=== PATIENT | female | born 1945 | race Caucasian/White ===

== ENCOUNTER 2016-05-29 09:11 | Observation (INO) | payer OTHER, MEDICAID ==
[2016-05-29] MEDS ORDERED: NS 1,000 ML IV ONE (09:17)
--- NOTE | 2016-05-29 09:22 | EDPHY ---
H & P Time Seen by Provider: 05/29/16 09:17 HPI/ROS: CHIEF COMPLAINT: Syncope HISTORY OF PRESENT ILLNESS: 70-year-old female with a history of severe depression presents for recurrent syncopal episodes. Today she was at ECT, about to receive her ECT treatment, when she had a witnessed syncopal episode while she was sitting. Associated with brief generalized seizure activity after the episode. She quickly returned to her baseline mental status. However , when she was talking to Dr. Morales, she slumped forward and had a recurrent episode of unresponsiveness, associated with generalized seizure activity. She quickly returned to her normal mental status and was not postictal after the episode. She states that these episodes frequently occur for her. She was evaluated in January 2015 for recurrent near syncopal episodes and diagnosed with multiple pulmonary embolisms. The patient is anticoagulated on Xarelto. Over the past week, she's noticed intermittent episodes of chest pain. Her pain is localized substernally. It is moderate in nature. Her pain is unassociated with exertion. REVIEW OF SYSTEMS: Constitutional: No fever, no chills Eyes: No visual changes ENT: No sore throat Respiratory: No cough, no shortness of breath Cardiac: Chest pain Gastrointestinal: No nausea, no vomiting, no abdominal pain Genitourinary: No hematuria, no dysuria Musculoskeletal: No leg pain or swelling Skin: No rash Neurological: No headache, no numbness, no weakness Psychiatric: Depression Past Medical/Surgical History: Depression, PE Social History: No recent alcohol. Smoking Status: Former smoker Physical Exam: General Appearance: Alert, no distress Eyes: Pupils equal and round, no conjunctival pallor or injection ENT, Mouth: Mucous membranes moist Neck: Normal inspection Respiratory: Lungs are clear to auscultation Cardiovascular: Regular rate and rhythm Gastrointestinal: Abdomen is soft and non-tender Neurological: A&O, nonfocal, normal gait Skin: Warm and dry, no rash Extremities: Nontender, no pedal edema Psychiatric: Mood and affect normal Constitutional: Initial Vital Signs Temperature (C) 36.3 C 05/29/16 09:15 Heart Rate 103 H 05/29/16 09:15 Respiratory Rate 16 05/29/16 09:15 Blood Pressure 163/85 H 05/29/16 09:15 O2 Sat (%) 93 05/29/16 09:15 O2 Delivery Mode Room Air Allergies/Adverse Reactions: Penicillins Allergy (Intermediate, Verified 11/08/14 01:53) Tetracyclines Allergy (Intermediate, Verified 11/08/14 01:53) latex Allergy (Verified 01/25/15 09:43) Home Medications: Medication Instructions Recorded Vitamin B Complex [B Complex] 1 each PO DAILY 07/30/14 Pravastatin Sodium [Pravachol] 20 mg PO HS #30 tab 08/29/14 Venlafaxine Xr [Effexor Xr] 150 mg PO DAILY #30 cap 08/29/14 Enalapril Maleate [Vasotec 5 MG 2.5 mg PO DAILY 11/02/14 (*)] Sennosides/Docusate Sodium 2 each PO BID 11/02/14 [Senokot-S] Acetaminophen [Tylenol Tablet] 650 mg PO Q6 PRN 11/08/14 Pantoprazole Sodium [Protonix 40mg 40 mg PO DAILY #60 tab 11/08/14 (*)] ARIPiprazole [Abilify 2 mg (*)] 2 mg PO DAILY 01/25/15 Calcium Carbonate [Tums 500MG (*)] 1,000 mg PO PRN PRN 01/25/15 Cholecalciferol (Vitamin D3) 50,000 unit PO Q30D 01/25/15 [Vitamin D3] Venlafaxine Xr [Effexor Xr 37.5MG 37.5 mg PO DAILY 01/25/15 (*)] Enoxaparin [Lovenox 60 MG (*)] 60 mg SC BID #0 syr 01/29/15 Levothyroxine [Synthroid 50 mcg 50 mcg PO DAILY06 #0 tab 01/29/15 (*)] Warfarin Sodium [Coumadin 5MG (*)] 5 mg PO DAILY16 #0 tab 01/29/15 Medical Decision Making - Diagnostics EKG Interpretation: The 12 lead EKG was interpreted by myself. See hard copy and/or "tracemaster" electronic copy for interpretation: Sinus rhythm, left anterior fascicular block. Poor R wave progression. Borderline T abnormalities. Imaging: Study: CT Angio of the chest. Indication: Syncope with chest pain. Results: No residual recurrent PEs. Pulmonary arteries appear clean. The study was read by the radiologist, Dr. Felipe. I viewed the images myself on the PACS system. ED Course/Re-evaluation: Patient a recurrent syncopal with seizure-like activity. Stat EKG reveals evidence ischemia or dysrhythmia. Given prior similar symptoms related to pulmonary embolism perform a CT pulmonary angiogram. She is Xarelto and has been taking her medication as prescribed. IV was established patient and she received 1L normal saline. CT angio chest is pending. CT scan results discussed with the patient. She was asymptomatic throughout her emergency department stay. organic lab worker revealed normal sinus rhythm throughout. Given 2 episodes of true syncope, she will require admission and cardiac monitoring. 11:30 am: I consulted the hospitalist, the patient will be admitted to Dr. Her. Differential Diagnosis: Differential diagnosis includes though is not limited to cardiac dysrhythmia, CVA, TIA, GI bleed, sepsis, hypoglycemia. - Data Points Laboratory Results: Laboratory Results 05/29/16 09:10 05/29/16 09:10 05/29/16 05/29/16 09:15 09:10 WBC 6.47 10^3/uL (3.80-9.50) RBC 4.99 10^6/uL (4.18-5.33) Hgb 14.9 g/dL (12.6-16.3) POC Hgb 15.0 gm/dL (12.3-15.9) Hct 43.9 % (38.0-47.0) POC Hct 44 % (35.5-47.5) MCV 88.0 fL (81.5-99.8) MCH 29.9 pg (27.9-34.1) MCHC 33.9 g/dL (32.4-36.7) RDW 12.9 % (11.5-15.2) Plt Count 255 10^3/uL (150-400) MPV 9.7 fL (8.7-11.7) Neut % (Auto) 41.9 % (39.3-74.2) Lymph % (Auto) 46.5 H % (15.0-45.0) [place] % (Auto) 8.3 % (4.5-13.0) Eos % (Auto) 2.2 % (0.6-7.6) Baso % (Auto) 0.8 % (0.3-1.7) Nucleat RBC Rel Count 0.0 % (0.0-0.2) Absolute Neuts (auto) 2.71 10^3/uL (1.70-6.50) Absolute Lymphs (auto) 3.01 H 10^3/uL (1.00-3.00) Absolute Monos (auto) 0.54 10^3/uL (0.30-0.80) Absolute Eos (auto) 0.14 10^3/uL (0.03-0.40) Absolute Basos (auto) 0.05 10^3/uL (0.02-0.10) Absolute Nucleated RBC 0.00 10^3/uL (0-0.01) Immature Gran % 0.3 % (0.0-1.1) Immature Gran # 0.02 10^3/uL (0.00-0.10) POC Sodium 145 H mEq/L (134-144) Sodium 146 H mEq/L (134-144) POC Potassium 4.0 mEq/L (3.3-5.0) Potassium 4.3 mEq/L (3.5-5.2) POC Chloride 106 mEq/L (96-108) Chloride 106 mEq/L (97-110) Carbon Dioxide 26 mEq/l (22-31) Anion Gap 14 mEq/L (8-16) POC BUN 16 mg/dL (7-23) BUN 14 mg/dL (7-23) Creatinine 1.0 mg/dL (0.6-1.0) POC Creatinine 1.0 mg/dL (0.6-1.2) Estimated GFR 55 Glucose 99 mg/dL (70-100) POC Glucose 101 H mg/dL (70-100) Calcium 10.0 mg/dL (8.5-10.4) Troponin I < 0.012 ng/mL (0-0.034) NT-Pro-B Natriuret Pep 69 pg/mL (0-125) TSH 7.870 H uIU/mL (0.465-4.680) Medications Given: Discontinued Medications Sodium Chloride (Ns) 1,000 mls @ 0 mls/hr IV ONCE ONE PRN Reason: Wide Open Stop: 05/29/16 09:18 Last Admin: 05/29/16 09:20 Dose: 1,000 mls Point of Care Test Results: 05/29/16 09:15 POC Sodium 145 H POC Potassium 4.0 POC Chloride 106 POC BUN 16 POC Creatinine 1.0 POC Glucose 101 H Departure - Departure Disposition: [facility] Inpatient Acute Clinical Impression: Syncope Qualifiers: Syncope type: unspecified Qualifier Code: (R55) Syncope and collapse Condition: Fair Report Scribed for: Angela Gooden Report Scribed by: Edith Winslow Date of Report: 05/29/16 Time of Report: 09:34 Physician Review and Approval Statement: 05/29/16 09:34 Portions of this note were transcribed by a senior medical writer. I personally performed the history, physical exam, and medical decision-making; and confirmed the accuracy of the information in the transcribed note.
[2016-05-29 09:26] LABS: % IMMATURE GRANULYOCYTES 0.3 % (0.0-1.1); ABSOLUTE IMMATURE GRANULOCYTES 0.02 10^3/uL (0.00-0.10); ADD DIFF? NO; ADD MORPH? NO; ADD SCAN? NO; ATYPICAL LYMPHOCYTE FLAG 20 (0-99); FRAGMENT RBC FLAG 0 (0-99); HEMATOCRIT 43.9 % (38.0-47.0); HEMOGLOBIN 14.9 g/dL (12.6-16.3); LEFT SHIFT FLG 0 (0-99); LIPEMIA HEMOLYSIS FLAG 90 (0-99); MEAN CELL HEMOGLOBIN 29.9 pg (27.9-34.1); MEAN CELL HEMOGLOBIN CONCENTR. 33.9 g/dL (32.4-36.7); MEAN PLATELET VOLUME 9.7 fL (8.7-11.7); PLATELET CLUMPS FLAG 0 (0-99); PLATELET COUNT 255 10^3/uL (150-400); RED BLOOD CELL COUNT 4.99 10^6/uL (4.18-5.33); RED CELL DISTRIBUTION WIDTH 12.9 % (11.5-15.2)
[2016-05-29 09:50] LABS: ANION GAP 14 mEq/L (8-16); CARBON DIOXIDE 26 mEq/l (22-31); CHLORIDE 106 mEq/L (97-110); GLOMERULAR FILTRATION RATE 55; GLUCOSE 99 mg/dL (70-100); POTASSIUM 4.3 mEq/L (3.5-5.2); SODIUM 146 mEq/L (134-144)
[2016-05-29] MEDS ORDERED: IOPAMIDOL (ISOVUE 370) 75 ML BTL IV ONE (09:58)
[2016-05-29 10:02] LABS: TROPONIN I < 0.012 ng/mL (0-0.034)
--- NOTE | 2016-05-29 10:58 | CT ---
Contrast-Enhanced CT Scan of the Chest (CT Pulmonary Artery Angiography) Clinical History: 70-year-old female who has had fainting episodes, most recently last night with no specific chest pain but the patient is dizzy and short of breath. Rule out pulmonary artery emboli. T he patient has had a previous history of PE diagnosed in January 2015. Technique: A timing bolus was used, and the patient received 90 mL of IV Isovue-370 without complicat ion. A multidetector helical CT scan was obtained from the base of the neck inferiorly to the upper a bdomen, with images reformatted at 1.50 and 4/3 mm increments, and reviewed at a variety of window an d level settings. Multiplanar reconstructions are reviewed on the workstation. The DFOV is 34.5 cm. D ose reduction protocol was used. Comparison Study: CT angiography of the chest, dated January 26, 2015, chest radiography, dated Jan and CT imaging of the chest, dated November 08, 2014. Findings: CT Angiography of the Chest: The main pulmonary artery, the main right and the main left pulmonary ar teries, and the first, second, and third order pulmonary artery segments are contrast-opacified, with no residual or recurrent thromboemboli. There is no interventricular septal bowing, and there is no reflux of contrast into the intrahepatic IVC. There is no pericardial effusion. The thoracic aortic c ontour is notable for borderline-ectasia of the ascending thoracic aorta, measuring 3.4 x 3.5 cm. The descending thoracic aorta measures 2.1 x 2.1 cm. There is a normal anatomic arrangement of the great vessels off of the aortic arch. There is no aneurysm or dissection. The visualized upper abdominal a paul and the celiac and SMA axes are normal in size, with some minimal atherosclerotic calcification. Contrast-Enhanced CT Scan of the Chest: There is some stable linear scarring seen laterally near the right minor fissure. There is no new focal alveolar consolidation, pleural effusion, or pulmonary nod ule. There is no axillary or intrathoracic adenopathy. The thyroid gland is diminutive. There is mild mediastinal lipomatosis. The subcutaneous tissues are unremarkable. The osseous structures are age-a ppropriate. There is some mild persistent thickening of the distal thoracic esophagus near the GE paras ction. The previous studies demonstrated some cholelithiasis (equivocally seen today on series 5, carlos ge 190). There is no gallbladder wall thickening, or pericholecystic fluid. There is no bile duct dil atation. There is a stable appearance of a tiny flash-filling hemangioma near the dome of the liver o n series 5, image 138, and a second is seen in the anterior right hepatic lobe on series 5, image 168 . There is a heterogeneous appearance to the spleen, consistent with the arterial phase of contrast e nhancement. A nonspecific 12 mm precaval lymph node is seen. The visualized portions of the adrenal g lands are unremarkable. Impression: 1. There is no CT evidence of pulmonary artery thromboemboli. 2. Linear scar in the inferolateral right upper lobe adjacent to the right minor fissure, unchanged f rom 2015. 3. Small hiatal hernia and/or distal thoracic esophageal wall thickening, which has been present befo re. 4. There are a couple of stable flash-filling hemangiomas again noted. 5. Suspected cholelithiasis (seen to better advantage on previous imaging studies). Results were called to Tomi, the medical i d sales for Dr. Alma Gooden. A test result has been communicated to a licensed care provider and documented in [employer], 10:49:36 A M, 05/29/2016, [employer] Message ID [id number].
[2016-05-29] MEDS ORDERED: CALCIUM CARBONATE 500 MG CHEWABLE TAB PO PRN (14:34)
[2016-05-29] MEDS ORDERED: ONDANSETRON DISINTEGRATING 4 MG TAB PO PRN (14:34)
[2016-05-29] MEDS ORDERED: ACETAMINOPHEN 325 MG TAB PO PRN ×2 (14:34)
[2016-05-29] MEDS ORDERED: ONDANSETRON 4 MG/2 ML VIAL IVP PRN (14:34)
[2016-05-29] MEDS ORDERED: BISACODYL 10 MG SUPP PR PRN (14:34)
[2016-05-29] MEDS ORDERED: MAG HYDROX/AL HYDROX/SIMETH 30 ML UDCUP PO PRN (15:00)
--- NOTE | 2016-05-29 15:07 | CPEKG ---
Heart Rate: 81 RR Interval: 741 P-R Interval: 176 QRSD Interval: 88 QT Interval: 420 QTC Interval: 488 P [place]: 56 QRS [place]: -44 T Wave [place]: 77 EKG Severity - BORDERLINE ECG - EKG Impression: SINUS RHYTHM EKG Impression: LEFT AXIS DEVIATION EKG Impression: BORDERLINE T ABNORMALITIES, ANT-LAT LEADS Electronically Signed By: Mateo Flores 29-May-2016 17:37:08
--- NOTE | 2016-05-29 15:19 | GHP ---
[f rep st] HISTORY AND PHYSICAL DATE OF ADMISSION: 05/29/2016 CHIEF COMPLAINT: Syncope. HPI: This is a 70-year-old female with history of bipolar depression undergoing ECT treatment, who w as brought to the emergency department today after she had a witnessed episode of loss of consciousne ss prior to ECT. The patient tells me that she has had problems with loss of consciousness in the past. Prior to ECT today, per ER report, she had an episode where she lost consciousness which was then followed by nicki c/colonic activity. The patient was not noted to have a significant postictal phase. During the time of my exam, the patient denies any chest pain, but tells me that she intermittently h as vague substernal chest pain that does not radiate. She is unable to tell me what makes it worse o r makes it better. PAST MEDICAL HISTORY: 1. Hospitalization in January of 2015 for acute pulmonary embolism. 2. History of overly treated hypothyroidism. 3. Hypertension. 4. Hyperlipidemia. 5. Cognitive impairment. 6. Syncope. HOME MEDICATIONS: Reviewed. Refer to [employer] for details. ALLERGIES: Penicillin, tetracycline, latex. SOCIAL HISTORY: The patient is a former smoker. She denies any alcohol or illicit drug use. FAMILY HISTORY: Negative for sudden cardiac . REVIEW OF SYSTEMS: Comprehensive 10-point review of systems was done and was negative except for as mentioned in the HPI. PHYSICAL EXAM: VITAL SIGNS: Blood pressure 123/84, pulse of 86, respiratory rate 20, O2 saturation 91% on room air, temperature afebrile. GENERAL: No acute distress. HEAD: Normocephalic, atraumati c. Eyes are PERRLA. Sclerae anicteric. MOUTH: Moist mucous membranes. NECK: Supple. No lymphad enopathy. CARDIOVASCULAR: S1, S2. No murmurs, rubs, clicks, gallops, or JVD. No lower extremity ed carol ann. No carotid bruits. PULMONARY: Lungs are clear. No wheezes, rales, or rhonchi. ABDOMEN: Sof t, nontender, nondistended. No guarding or rebound tenderness. Normoactive bowel sounds. EXTREMITI ES: No clubbing or cyanosis. NEURO: Cranial nerves 2-12 grossly intact. Face is symmetric. There is no pronator drift. Muscle strength 5/5 bilateral upper extremities flexion, extension, and spray worker strength. There is no lower extremity deficit. During the time of my exam, the patient had an episo de where she jerked, closed her eyes and appeared to lose consciousness for about 20 seconds. During this episode, she had no tonic/clonic activity or loss of postural tone. PSYCHIATRIC: The patient is appropriate with a normal affect. She denies any suicidal or homicidal ideation. LABORATORY DATA: WBC 6.4, hemoglobin 14.9, hematocrit 43.9, platelets 255. Sodium 145, potassium 4, chloride 106, BUN 16, creatinine 1, glucose [address] angio of the chest shows no evid ence for pulmonary artery thromboemboli. There is a small hiatal hernia and/or distal thoracic esoph ageal wall thickening which is not new. ASSESSMENT: This is a 70-year-old female with history of bipolar disorder and depression undergoing ECT treatment, who apparently had a witnessed episode of loss of loss of consciousness earlier today. Differential diagnosis includes psychogenic nonepileptic seizures versus seizures versus syncope. PLAN: 1. The patient will be placed on observation where we will monitor on telemetry. Will obtain EKG an d troponin now as well as one in 6 hours given the fact that she did report some chest pain. For now , will forego further cardiac workup pending the results of her EKG and troponin. She did have an ec hocardiogram done in January of 2015, which revealed a normal ejection fraction and no significant valvular disease. I will ask a neurologist to come evaluate the patient and evaluate for the appropr iateness for EEG and CT of the head for further seizure workup as indicated. 2. History of pulmonary embolism. The plan is continue the patient's home dose of Xarelto. 3. History of bipolar depression. The plan is continue current psychotropic medications. /[id number]/MODL
[2016-05-29] MEDS: VENLAFAXINE XR 150 MG CAP PO SCH (16:16)
[2016-05-29] MEDS: RIVAROXABAN 20 MG TAB PO SCH (16:16)
[2016-05-29] MEDS: ARIPiprazole 2 MG TAB PO SCH (16:32)
[2016-05-29] MEDS: SENNOSIDES/DOCUSATE SODIUM TAB PO SCH (20:52)
[2016-05-29] MEDS: LOSARTAN POTASSIUM 25 MG TAB PO SCH (20:53)
[2016-05-29] MEDS ORDERED: PRAVASTATIN SODIUM 20 MG TAB PO SCH (21:00)
[2016-05-30] MEDS ORDERED: LEVOTHYROXINE 75 MCG TAB PO SCH (06:00)
[2016-05-30 08:02] VITALS: RESP 15
[2016-05-30] MEDS ORDERED: VITAMIN B COMPLEX 1 EA CAP/TAB PO SCH (09:00)
[2016-05-30] MEDS ORDERED: ASPIRIN 81 MG CHEWABLE TAB PO SCH (09:00)
[2016-05-30] MEDS ORDERED: CHOLECALCIFEROL VIT D3 2,000 UNITS TAB/CAP PO SCH (09:00)
[2016-05-30] MEDS ORDERED: VENLAFAXINE XR 37.5 MG CAP PO SCH (09:00)
[2016-05-30] MEDS ORDERED: POLYETHYLENE GLYCOL 3350 17 GM PKT PO SCH (09:00)
--- NOTE | 2016-05-30 10:38 | PDIAF ---
- Diagnosis Diagnosis: nonepileptic seizure Code Status: Full Code - Medication Management Discharge Medications: Medications to Continue on Transfer Vitamin B Complex [B Complex] 1 each PO DAILY 07/30/14 [Last Taken 05/28/16] Pravastatin Sodium [Pravachol] 20 mg PO HS #30 tab 08/29/14 [Last Taken 05/28/16 ] Venlafaxine Xr [Effexor Xr] 150 mg PO DAILY #30 cap 08/29/14 [Last Taken ] Sennosides/Docusate Sodium [Senokot-S] 2 each PO BID 11/02/14 [Last Taken ] Acetaminophen [Tylenol 325mg (*)] 650 mg PO Q6 PRN 11/08/14 [Last Taken 05/27/16 ] ARIPiprazole [Abilify 2 mg (*)] 2 mg PO DAILY 01/25/15 [Last Taken 05/28/16] Calcium Carbonate [Tums 500MG (*)] 1,000 mg PO PRN PRN 01/25/15 [Last Taken Unknown] Cholecalciferol (Vitamin D3) [Vitamin D3] 50,000 unit PO Q30D 01/25/15 [Last Taken 05/14/16] Venlafaxine Xr [Effexor Xr 37.5MG (*)] 37.5 mg PO DAILY 01/25/15 [Last Taken 05/02] Aspirin [Aspirin 81mg (*)] 81 mg PO DAILY 05/29/16 [Last Taken 05/28/16] Bisacodyl [Dulcolax] 10 mg [place] DAILY PRN 05/29/16 [Last Taken Unknown] Cholecalciferol Vit D3 [Vitamin D3 2000 units tab (OTC)] 2,000 units PO DAILY [Last Taken 05/28/16] Levothyroxine [Synthroid 75 mcg (*)] 75 mcg PO DAILY06 05/29/16 [Last Taken 05/02] Losartan Potassium [Cozaar 25 mg (*)] 12.5 mg PO BID 05/29/16 [Last Taken ] Mag Hydrox/Al Hydrox/Simeth [Maalox Maximum Strength Suspension] 20 ml PO Q6PRN PRN 05/29/16 [Last Taken Unknown] Meclizine HCl [Meclizine HCl 25 mg (RX,OTC)] 25 mg PO Q6 PRN 05/29/16 [Last Taken Unknown] Nitroglycerin [Nitrostat 0.4 mg (*)] 0.4 mg SL Q5M PRN 05/29/16 [Last Taken Unknown] Ondansetron Odt [Zofran Odt 4 mg (*)] 4 mg PO Q6 PRN 05/29/16 [Last Taken Unknown] Phenazopyridine HCl [Azo Urinary Pain Relief] 190 mg PO BID PRN 05/29/16 [Last Taken Unknown] Polyethylene Glycol 3350 [Miralax 17 gm (*)] 17 gm PO DAILY 05/29/16 [Last Taken 05/28/16] Rivaroxaban [Xarelto] 20 mg PO DAILY 05/29/16 [Last Taken 05/28/16] traMADol [Ultram 50 mg (*)] 50 mg PO Q6 PRN 05/29/16 [Last Taken Unknown] Discharge Medications: Refer to the Discharge Home Medication list for PRN reason. - Orders Services needed: Registered Nurse, Physical Therapy, Occupational Therapy Diet Recommendation: no restrictions on diet Diet Texture: Regular Texture Diet - Follow Up Care Current Providers and Referrals: [place] STATE,. [Primary Care Provider] -
[2016-05-30] MEDS: RIVAROXABAN 20 MG TAB PO SCH (10:45)
[2016-05-30] MEDS: ARIPiprazole 2 MG TAB PO SCH (10:45)
[2016-05-30] MEDS: LOSARTAN POTASSIUM 25 MG TAB PO SCH (10:45)
[2016-05-30] MEDS: VENLAFAXINE XR 150 MG CAP PO SCH (10:45)
[2016-05-30] MEDS: SENNOSIDES/DOCUSATE SODIUM TAB PO SCH (10:47)
[2016-05-30 11:25] VITALS: BP 131/87; PULSE 86; TEMP 98; O2SAT 92
--- NOTE | 2016-05-30 11:42 | GDS ---
[f rep st] DISCHARGE SUMMARY DISCHARGE DIAGNOSES: 1. Suspected nonepileptic seizures. 2. History of pulmonary embolism. 3. History of bipolar depression. HOSPITAL COURSE AND STAY BY PROBLEM: Suspected nonepileptic seizures: While in the hospital, the abdi delatorre had an episode where she closed her eyes and appeared to lose consciousness for 30 seconds, at which time I was able to raise her arm, and she had no evidence of loss of postural tone. She came t o without a postictal phase. This presentation is most consistent with nonepileptic seizures. I dis cussed this with the patient, who verbalizes understanding. She has been monitored on telemetry, whe re she has had no arrhythmias. Serial troponins were done, which were unremarkable. CT angio of the chest was done by the emergency department, which was also unremarkable. PHYSICAL EXAM: VITAL SIGNS: On day of discharge, blood pressure 128/85, pulse of 85, respiratory ra te 15, O2 saturation 91% on room air. Temperature afebrile. GENERAL: No acute distress. HEART: S 1, S2. LUNGS: Clear. ABDOMEN: Soft. NEURO: Cranial nerves 2-12 grossly intact. No focal motor or sensory deficits DIAGNOSTICS: Done this hospital stay: A CT angio of the chest on 05/29/2016, refer to report. DISCHARGE MEDICATIONS: Please refer to discharge medication reconciliation in [facility] for details. Below is a preliminary list. No home medications were added or changed. DISCHARGE INSTRUCTIONS: The patient will be discharged back to her care home facility where sh e should be seen by her primary care provider in the next week or so for routine hospital followup. She was instructed not to drive, operate heavy machinery, or put herself in danger if she were to los e consciousness. /[id number]/MODL
--- NOTE | 2016-05-30 11:53 | PDCONSULT ---
Title Curative Specialist Note: HOSPITAL NEUROLOGY CONSULT REQUESTING: Ab Her DO REASON: spells HPI: This is a 70-year-old right-handed woman with a history of bipolar depression who presented to our Emergency Department yesterday due to recurrent spells of impaired awareness. History is obtained from the patient as well as records review and discussion with Dr. Her who had witnessed a spell yesterday. The patient was with her psychiatrist yesterday and preparing for ECT treatment. Just before the treatment, the patient had 2 spells manifest as eye closure with loss of tone. There is also some indication of extremity flailing with the spell. She had regained awareness and apparently had no postictal state. Patient was brought to our emergency room for evaluation of syncope versus seizure versus behavioral spells. She was admitted for further evaluation. On the floor, Dr. Her had witnessed a spell where the patient had eye closure, loss of postural tone and he was able to reposition her limbs to the point where she was able to sustain antigravity with them. Patient also had another subsequent witnessed spell overnight by nursing where she closed her eyes to slumped in the bed placed her arms over her head, but was able to follow commands such as gripping the nurses hand. She had no changes on telemetry during her vitals. The patient had no postictal state afterwards and was at her baseline after the spell resolved. On my interview this morning, the patient states she does have variable sense of being able to hear those around her during the spells. She states she is under significant amount of stress and thinks that these have caused the spells , though was worried about something going on with her heart. She has no epilepsy risk factors including TBI, intracranial instrumentation/infection, collagen vascular disease, infantile/febrile seizures. She denies any prodrome all symptoms such as chest pain, palpitations, shortness of breath. ROS: As per the HPI, otherwise a complete 12 point ROS was performed and is negative ALLERGIES AND MEDS: As recorded in the EMR - reviewed and reconciled PFSH: As per the intake H&P by Dr. Her from 05/29/16 EXAM: GEN: WDWN laying in NAD HEENT: NCAT, sclera anicteric, conjunctiva not injected, MMM, oropharynx clear, no scalp tenderness NECK: supple, nontender, no meningismus CV: RRR s1 s2 wo m/r/c/g. Carotid pulses 2+ wo bruit NEURO: MS: awake, alert, oriented to all spheres. Speech nondysarthric. No language disturbance. Follows commands. Attends to both sides. Recent/remote memory grossly intact. Mood euthymic. Good fund of knowledge. CN: pupils 3mm round and reactive. Fundi with sharp discs. VFF. Primary gaze centered. Full ocular motility. Facial sensation preserved. Face symmetric. Palatoglossal movements intact. Shoulder shrug and head turn strong. MOTOR: normal bulk/tone. No adventitial movements. Full power throughout. SENSORY: intact to all modalities throughout. No extinction. COORD: no ataxia FN/HS. Ivania preserved. Romberg neg. REFLEX: plantars down. No clonus. DTRS 2/4. GAIT: rises unassisted. Narrow base. Intact stride length/heel strike/toe lift /arm swing. Turns with 2 steps. Able to tandem without difficulty. DATA: Labs, imaging and physiologic data reviewed in the EMR. IMPRESSION AND RECOMMENDATIONS: // Psychogenic nonepileptic/nonphysiologic spells - Conversion disorder Patient with spells manifest as different semiologies, some including loss of awareness with loss of postural tone, and some that have some hyper motor symptoms. Her spells were captured in the hospital and she had no changes in her vital signs and no changes on her telemetry. Given the variable semiologies, eye closure, ability to reposition the limbs, ability for her to follow commands during spells, lack of postictal state, these are very much nonepileptic and nonphysiologic in nature. I discussed with the patient how a diagnosis of conversion disorder is treatable with aggressive management of her psychiatric disease as well as intensive outpatient cognitive behavioral therapy. I also reassured her that these are not cardiac or epileptiform in nature. She will follow-up with her psychiatrist as an outpatient and will need to follow up with a psychologist to a skilled in cognitive behavioral therapy. No further neurodiagnostics are neuro interventions. She is cleared for discharge from a neurologic perspective.
--- NOTE | 2016-05-30 14:43 | CPEKG ---
Heart Rate: 97 RR Interval: 619 P-R Interval: 148 QRSD Interval: 88 QT Interval: 380 QTC Interval: 483 P [place]: 42 QRS [place]: -56 T Wave [place]: 70 EKG Severity - ABNORMAL ECG - EKG Impression: SINUS RHYTHM EKG Impression: LEFT ANTERIOR FASCICULAR BLOCK EKG Impression: CONSIDER ANTERIOR INFARCT EKG Impression: BORDERLINE T ABNORMALITIES, ANTERIOR LEADS Electronically Signed By: Angela Gooden 30-May-2016 23:09:01
[2016-06-14] MEDS ORDERED: CHOLECALCIFEROL VIT D3 50,000 UNIT CAP PO SCH (15:00)
== END 2016-05-30 15:11 ==
LOC: EDUNIT# → F2W 13:48
PROVIDERS: ADMIT Family Medicine; ATTEND Family Medicine
DX: F44.5 Conversion disorder with seizures or convulsions (principal); F31.63 Bipolar disorder, current episode mixed, severe, without psychotic features; Z86.711 Personal history of pulmonary embolism; Z79.01 Long term (current) use of anticoagulants; E03.9 Hypothyroidism, unspecified; I10 Essential (primary) hypertension; E78.5 Hyperlipidemia, unspecified; Z87.891 Personal history of nicotine dependence
CPT/HCPCS: 71275; 93005; 99285; G0378; 82947-QW

== ENCOUNTER → 2017-10-28 | Outpatient (CLI) | payer OTHER ==
--- NOTE | 2017-10-28 12:03 | CPEKG ---
Heart Rate: 75 RR Interval: 800 P-R Interval: 141 QRSD Interval: 96 QT Interval: 428 QTC Interval: 479 P [place]: 74 QRS [place]: -71 T Wave [place]: 119 EKG Severity - ABNORMAL ECG - EKG Impression: SINUS RHYTHM EKG Impression: LEFT ANTERIOR FASCICULAR BLOCK EKG Impression: CONSIDER ANTERIOR INFARCT EKG Impression: MODERATE BASELINE ARTIFACT Electronically Signed By: Rufino Bai 28-Oct-2017 16:28:55
== END ==
LOC: BCP 11:45
PROVIDERS: ATTEND Psychiatry & Neurology Psychiatry
DX: Z01.812 Encounter for preprocedural laboratory examination (principal)

== ENCOUNTER 2017-10-29 12:45 | Inpatient (IN) | payer OTHER ==
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
[2017-10-29] MEDS ORDERED: MAG HYDROX/AL HYDROX/SIMETH 30 ML UDCUP PO PRN (17:52)
[2017-10-29] MEDS ORDERED: MAGNESIUM HYDROXIDE 30 ML UDCUP PO PRN (17:52)
[2017-10-29] MEDS ORDERED: ACETAMINOPHEN 325 MG TAB PO PRN (17:52)
[2017-10-29] MEDS ORDERED: NITROGLYCERIN 0.4 MG BTL SL PRN (17:57)
[2017-10-29] MEDS: RIVAROXABAN 20 MG TAB PO SCH (19:09)
--- NOTE | 2017-10-29 19:52 | BAPA ---
[f rep st] ADMISSION PSYCHIATRIC ASSESSMENT DATE OF SERVICE: 10/29/2017 REASON FOR ADMISSION: Patient is a 71-year-old female with a lifelong history of severe bi polar disorder with a history of catatonic depression. She has been an outpatient of the [facility] for severa l years since an initial admission in March 2014 for catatonia. Since that time, she has received acute course and maintenance ECT. Her last admission to the inpatient unit was in October 2014, at [facility] time she was suffering a severe recurrence of her depression. She has not had catatonic or psycho tic symptoms since July 2014. She had been considering decreasing ECT for approximately a year. Ef forts were made to decrease her frequency of this and she experienced some mood instability. Over winter she had several episodes of hypomania followed by depression, and we increased and decrease the frequency of her maintenance ECT based on these symptoms. Most recently she had expanded her int erval back to monthly maintenance, but suffered a severe recurrence of her depression in the past 3-4 weeks, and since that time we have treated with weekly ECT, but it seems that she is not improving. When she presented to the [facility] today for scheduled maintenance ECT, she was elizabeth rgic and clearly not at her baseline. She was alert and oriented, though was disorganized and exhibi jamey significant psychomotor retardation. This state has appeared to have emerged over the last week, since her last visit with us, and is reminiscent of episodes when she will become catatonic. The pa nandini states that she does not feel herself and agreed that she would do better if she were in the ho spital. She has recently moved from her long-term placement at a prison facility to an inde pendent assisted living facility. Her symptoms do not seem to coincide with any stress over this tra nsition, as she was looking forward to it and she had been having some instability for some time befo re that. Most recently, patient was switched from Effexor to Lexapro by her primary care provider at the halfway. This did not seem to provide much improvement. PAST PSYCHIATRIC HISTORY: Significant for lifelong history of bipolar illness. Her most recent psyc hiatric hospitalization was in October 2014. ALLERGIES: Penicillin, tetracycline, and latex. CURRENT MEDICATIONS: Include Lexapro 20 mg daily, Abilify 15 mg at bedtime, lithium carbonate 300 mg b.i.d., losartan 12.5 mg daily, Xarelto 20 mg daily, and trazodone 150 mg at bedtime. PAST MEDICAL HISTORY: Significant for some atypical syncopal episodes that are thought to be behavio ral, and hypertension. SOCIAL HISTORY: Patient is a lifelong resident of [facility]. She was previously living in [facility] with her daughter for a number of years. Her daughter was her primary caregiver. After her acute illness in 2013, she was placed at the prison facility. This facility was [facility], and the patient actually enjoyed it there. She resided there until very recently when she was going to move to the assisted living facility. There are no specific stressors noted. Patient does not have any active substance abuse problems. ADMISSION LABORATORY: Pending. MENTAL STATUS EXAMINATION: Reveals a disheveled female sitting in a hospital bed. She is slumped down in what appears to be uncomfortable position. She demonstrates significant psychomotor retardation. Her affect is blunted, though she does smile at times. She describes her mood as "bad. " Her thought process is delayed, disorganized, though she is able to state that she needs help and would like to be in the hospital. Her thought content reveals no mention of paranoia or hallucinatio ns. She is alert and oriented to person, place, and situation, though it is unclear whether she is o riented to time as she does not answer these questions. She denies any thoughts of suicide, homicide , or violence. Her insight and judgment appear to be good. IMPRESSION: Bipolar 1 disorder, most recent episode mixed, severe, without psychosis. 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 Patient is a 71-year-old female known to me from previous hospitalizations and ongoing 4-ye ar maintenance ECT. There has been some pressure by family and a psychologist with whom the patient worked at [facility] to limit or discontinue ECT. I believe that efforts in this vain were yrn kayley responsible for promoting her overall instability. The patient has a history of severe and ch ronic illness, and reached a functional level previously unattained once she was stable and doing reg ular maintenance ECT on a 4-6 week interval. My strong recommendation is that we return to that inte rval, but we will need to admit her to the hospital at this time for acute stabilization. PLAN: 1. Admit to the [facility] Inpatient Unit on a voluntary basis. 2. Continue outpatient medications as per previous. 3. Will need to clarify the need for the nitroglycerin, as she has no specific cardiac history and h as been hypotensive. 4. Will consider continued ECT even an abbreviated acute course after I discussed the case with the patient's daughter to ensure that we were in agreement. 5. Will check urinalysis, as there is some concern she may have a urinary tract infection which coul d account at least impart for acute mental status change. 6. Estimated length of stay is 5-7 days. /[id number]/MODL
[2017-10-29] MEDS: ARIPiprazole 10 MG TAB PO SCH (21:21)
[2017-10-29] MEDS: LITHIUM CARBONATE 300 MG CAP PO SCH (21:21)
[2017-10-30] MEDS: MELATONIN 3 MG TAB PO PRN (00:07)
[2017-10-30] MEDS: LOSARTAN POTASSIUM 25 MG TAB PO SCH (09:49)
[2017-10-30] MEDS: ESCITALOPRAM OXALATE 10 MG TAB PO SCH (09:49)
[2017-10-30] MEDS: LITHIUM CARBONATE 300 MG CAP PO SCH (09:50)
[2017-10-30 11:38] LABS: PLATELET COUNT 212 10^3/uL (150-400)
--- NOTE | 2017-10-30 13:33 | PDHOSCONS ---
History and Physical - Chief Complaint Hypotension, AMS - History of Present Illness This is a 71 yo female with lifelong hx of Bipolar 1 who get ECT regularly who was admitted voluntarily for mood stabilization. Since admission she has been noted to be borderline catatonic. Her BP this morning was decreased at 74/37. On repeat, it appears improved and has a normal value. Labs are c/w acute renal injury, elevated [place]. Fever has not been documented. ROS is difficult to due to her cognition which is impaired from baseline. She is on 2 L NC which is her baseline. She denies SOB or cough. She does not have any abd pain. No diarrhea. It is unclear is she has any urinary sx's UA is c/w with bacteriuria. Abx have not been started PMHx: HTN Syncope Pulmonary [place]olis in 2014 Chronic AC ?Syncope Non epileptic seizures HLD Soc: former tobacco user. FmHx: no hx of sudden History Information - Allergies/Home Medication List Allergies/Adverse Reactions: Penicillins Allergy (Intermediate, Verified 06/18/17 11:36) h/a rash Tetracyclines Allergy (Intermediate, Verified 06/18/17 11:36) h/a rash latex Allergy (Verified 06/18/17 11:36) Rash Home Medications: Acetaminophen [Tylenol 325mg (*)] 650 mg PO Q6 PRN 11/08/14 [Last Taken 05/27/16 ] Losartan Potassium [Cozaar 25 mg (*)] 12.5 mg PO DAILY 05/29/16 [Last Taken 06:00] Meclizine HCl [Meclizine HCl 25 mg (RX,OTC)] 12.5 mg PO Q6 PRN 05/29/16 [Last Taken Unknown] Polyethylene Glycol 3350 [Miralax 17 gm (*)] 17 gm PO DAILY 05/29/16 [Last Taken 05/28/16] Rivaroxaban [Xarelto] 20 mg PO HS 05/29/16 [Last Taken 05/28/16] Lexapro 20 mg PO DAILY 08/02/17 [Last Taken Unknown] Multivitamin (*) 1 tab PO DAILY 08/02/17 [Last Taken Unknown] traZODone 150 mg PO HS 08/02/17 [Last Taken Unknown] Abilify 15 mg PO HS 08/04/17 [Last Taken Unknown] Levothyroxine [Synthroid 100 mcg (*)] 50 mcg PO DAILY06 08/09/17 [Last Taken Unknown] Vitamin D3 50,000 units PO 08/25/17 [Last Taken Unknown] Nitroglycerin 0.4 mg SL PRN 09/03/17 [Last Taken Unknown] [place] Carbonate 300 mg PO BID 10/06/17 [Last Taken 10/05/17 18:00] I have personally reviewed and updated: medical history, social history - Social History Smoking Status: Former smoker Review of Systems Review of Systems: ROS: 10pt was reviewed & negative except for what was stated in HPI & below Physical Exam Physical Exam: Temp Pulse Resp BP Pulse Ox 37 C 79 16 118/55 L 92 10/30/17 08:00 10/30/17 08:00 10/30/17 08:00 10/30/17 08:00 10/30/17 08:00 O2 (L/minute) 2 Eyes: PERRL, EOMI Ears, Nose, Mouth, Throat: dry mucous membranes Cardiovascular: regular rate and rhythym Respiratory: no respiratory distress, reduced air movement Gastrointestinal: normoactive bowel sounds, soft, non-tender abdomen Skin: warm Musculoskeletal: generalized weakness Neurologic: No AAOx3 Psychiatric: encephalopathic, No interacting appropriately Lymph, Heme, Immunologic: No petechiae Lab Data & Imaging Review 10/30/17 08:45 10/30/17 08:45 WBC 6.06 10^3/uL (3.80-9.50) 10/30/17 08:45 RBC 3.96 10^6/uL (4.18-5.33) L 10/30/17 08:45 Hgb 11.8 g/dL (12.6-16.3) L 10/30/17 08:45 Hct 36.8 % (38.0-47.0) L 10/30/17 08:45 MCV 92.9 fL (81.5-99.8) 10/30/17 08:45 MCH 29.8 pg (27.9-34.1) 10/30/17 08:45 MCHC 32.1 g/dL (32.4-36.7) L 10/30/17 08:45 RDW 13.5 % (11.5-15.2) 10/30/17 08:45 Plt Count 212 10^3/uL (150-400) 10/30/17 08:45 MPV 10.2 fL (8.7-11.7) 10/30/17 08:45 Neut % (Auto) 57.5 % (39.3-74.2) 10/30/17 08:45 Lymph % (Auto) 25.9 % (15.0-45.0) 10/30/17 08:45 [place] % (Auto) 10.9 % (4.5-13.0) 10/30/17 08:45 Eos % (Auto) 5.1 % (0.6-7.6) 10/30/17 08:45 Baso % (Auto) 0.3 % (0.3-1.7) 10/30/17 08:45 Nucleat RBC Rel Count 0.0 % (0.0-0.2) 10/30/17 08:45 Absolute Neuts (auto) 3.48 10^3/uL (1.70-6.50) 10/30/17 08:45 Absolute Lymphs (auto) 1.57 10^3/uL (1.00-3.00) 10/30/17 08:45 Absolute Monos (auto) 0.66 10^3/uL (0.30-0.80) 10/30/17 08:45 Absolute Eos (auto) 0.31 10^3/uL (0.03-0.40) 10/30/17 08:45 Absolute Basos (auto) 0.02 10^3/uL (0.02-0.10) 10/30/17 08:45 Absolute Nucleated RBC 0.00 10^3/uL (0-0.01) 10/30/17 08:45 Immature Gran % 0.3 % (0.0-1.1) 10/30/17 08:45 Immature Gran # 0.02 10^3/uL (0.00-0.10) 10/30/17 08:45 Sodium 141 mEq/L (135-145) 10/30/17 08:45 Potassium 4.2 mEq/L (3.3-5.0) 10/30/17 08:45 Chloride 109 mEq/L (97-110) 10/30/17 08:45 Carbon Dioxide 27 mEq/l (22-31) 10/30/17 08:45 Anion Gap 5 mEq/L (8-16) L 10/30/17 08:45 BUN 14 mg/dL (7-23) 10/30/17 08:45 Creatinine 1.5 mg/dL (0.6-1.0) H 10/30/17 08:45 Estimated GFR 34 10/30/17 08:45 Glucose 79 mg/dL (70-100) 10/30/17 08:45 Calcium 9.7 mg/dL (8.5-10.4) 10/30/17 08:45 Total Bilirubin 0.9 mg/dL (0.1-1.4) 10/30/17 08:45 AST 19 IU/L (14-46) 10/30/17 08:45 ALT 27 IU/L (9-52) 10/30/17 08:45 Alkaline Phosphatase 48 IU/L (38-126) 10/30/17 08:45 Total Protein 5.9 g/dL (6.3-8.2) L 10/30/17 08:45 Albumin 3.0 g/dL (3.5-5.0) L 10/30/17 08:45 Urine Color YELLOW 10/29/17 17:15 Urine Appearance HAZY 10/29/17 17:15 Urine pH 5.0 (5.0-7.5) 10/29/17 17:15 Ur Specific [place] 1.021 (1.002-1.030) 10/29/17 17:15 Urine Protein NEGATIVE (NEGATIVE) 10/29/17 17:15 Urine Ketones NEGATIVE (NEGATIVE) 10/29/17 17:15 Urine Blood NEGATIVE (NEGATIVE) 10/29/17 17:15 Urine Nitrate NEGATIVE (NEGATIVE) 10/29/17 17:15 Urine Bilirubin NEGATIVE (NEGATIVE) 10/29/17 17:15 Urine Urobilinogen 4.0 EU (0.2-1.0) H 10/29/17 17:15 Ur Leukocyte Esterase 1+ (NEGATIVE) H 10/29/17 17:15 Urine RBC 5-10 /hpf (0-3) H 10/29/17 17:15 Urine WBC 25-50 /hpf (0-3) H 10/29/17 17:15 Ur Epithelial Cells 2+ /lpf (NONE-1+) H 10/29/17 17:15 Urine Bacteria TRACE /hpf (NONE SEEN) H 10/29/17 17:15 Hyaline Casts 50-182 /lpf (0-1) H 10/29/17 17:15 Urine Mucus 1+ /lpf (NONE-1+) 10/29/17 17:15 Urine Glucose NEGATIVE (NEGATIVE) 10/29/17 17:15 [place] 2.1 mEq/L (0.6-1.2) H* 10/30/17 08:45 Assessment & Plan Assessment: #Bipolar 1 disorder, depressed, severe (Acute) #Hypotension #Acute Kidney Injury #[place] Toxicity #Bacteriuria, ? UTI #Hx of PE #Chronic Anticoagulation #Weakness Plan she needs IVF and this cannot be done here. She will be sent to the ER In the ER, would also treat the UTI and obtain a new set of labs Pending clinical course in the ER, she may need admission vs return to behavioral health.
--- NOTE | 2017-10-30 15:07 | ASMTBHDC ---
Notes Note: Notes: Patient was seen by the hospitalist and it was determined that she needed medical iintervention. Patient was transfered to [facility] after 15:00. Date Signed: 10/30/2017 03:06 PM Electronically Signed By:Aleena Nolasco
--- NOTE | 2017-10-30 15:47 | SOAPPROG ---
SOAP Progress Note Assessment/Plan: Assessment: 71 yo woman recently transitioned from SNF to [facility], presented for maintenance ECT on 10/29/17 and was admitted to d/t lethargy and psychomotor retardation. Staff at [facility] report change in mental status over past week. Plan: 10/30/17 15:46 1. Today, patient was very obtunded and lethargic. She had difficulty feeding herself and could not answer questions. 2. AMS likely d/t combination of factors includin) bacteriuria, 2) JUANITA, 3) [place] toxicity 3. D/C lithium until hydration complete and kidney function back to normal 4. Dr. Parks transferred patient to ED for IVF and possible admission 5. Will need abx for UTI 6. When patient medically stable, will return to for continued tx 7. Plan is to increase frequency of ECT Subjective: Met with patient, reviewed chart and d/w staff. Patient had profound psychomotor retardation and altered mental status. She wasn't able to feed herself. Her lithium level was 2.1 in AM. She did receive 300mg lithium at HS last night, however, blood was drawn almost 12 hrs after her last dose, so it's likely a reliable trough. She has slight bilateral tremor, but no N/V, and no other sxs of lithium toxicity. Labs did indicate bacteriuria and JUANITA. The hospitalist, Dr. Parks, evaluated patient and determined she needed IVF, so she was sent to ED. Objective: Vital Signs Temp Pulse Resp BP Pulse Ox 37.4 C 63 16 82/43 L 99 10/30/17 15:04 10/30/17 15:04 10/30/17 15:04 10/30/17 15:04 10/30/17 15:04 Laboratory Results 10/30/17 08:45 10/30/17 08:45 10/29/17 10/30/17 10/31/17 05:59 05:59 05:59 Intake Total 300 Balance 300 MSE: Affect: Flat Mood: Depressed TP: Paucity of speech, word finding difficulty TC: Unable to evaluate Insight/Judgment: Poor - Time Spent With Patient Time Spent With Patient: 15" - Pending Discharge Pending Discharge Within 24 Hours: No Pending Discharge Within 48 Hours: No ICD10 Worksheet Patient Problems: Problems Problem Status Onset Bipolar 1 disorder, depressed, severe Acute Chest pain Acute Pulmonary embolism Acute Syncope Acute Anxiety Chronic Depression Chronic
[2017-10-30] MEDS: RIVAROXABAN 20 MG TAB PO SCH (21:18)
[2017-10-30] MEDS: ARIPiprazole 10 MG TAB PO SCH (21:18)
[2017-10-31] MEDS: ESCITALOPRAM OXALATE 10 MG TAB PO SCH (09:41)
[2017-10-31] MEDS: LOSARTAN POTASSIUM 25 MG TAB PO SCH (09:42)
--- NOTE | 2017-10-31 14:00 | SOAPPROG ---
SOAP Progress Note Assessment/Plan: Assessment: 71 yo woman recently transitioned from SNF to [facility], presented for maintenance ECT on 10/29/17 and was admitted to d/t lethargy and psychomotor retardation. Staff at [facility] report change in mental status over past week. Plan: 10/30/17 15:46 1. Today, patient was very obtunded and lethargic. She had difficulty feeding herself and could not answer questions. 2. AMS likely d/t combination of factors includin) bacteriuria, 2) JUANITA, 3) [place] toxicity 3. D/C lithium until hydration complete and kidney function back to normal 4. Dr. Parks transferred patient to ED for IVF and possible admission 5. Will need abx for UTI 6. When patient medically stable, will return to for continued tx 7. Plan is to increase frequency of ECT 10/31/17 13:54 1. Patient went to ED yesterday. She was given 2L IVF. Creatinine went down from 1.5 to 1.3. [place] level decreased from 2.1 to 1.8. 2. Patient was also given 1g Rocephin IV in ED for bacteriuria. Will continue treatment with Keflex 500mg TID x 10days. 3. Patient not able to drink or eat much PO. Fluid intake this AM was only 250ml. She needs prompts and often hand feeding by 1:1 staff. Staff report difficulty swallowing, though there is no indication of physical cause for dysphagia. May need a swallow study if patient's PO intake does not improve. She may also need to be admitted to med floor if she cannot maintain proper fluid intake d/t kidney issues and inability to clear lithium, as well as general deconditioning. 4. Slightly more alert at times, but often lethargic and confused. This may be d /t combination of bacteriuria, lithium toxicity and catatonia. 5. Will repeat [place] level, BMP, CBC in AM. 6. Possible acute course of ECT. Subjective: Met with patient, reviewed chart and d/w staff. Returned from ED last night. Was given IV Rocephin in ED and started on PO Keflex for UTI. Patient also has acute kidney injury likely d/t dehydration. She received 2L IVF in ED. Today she is lethargic, sleeping when MD went to her room to talk to her. Staff report patient is having difficulty swallowing. No known h/o dysphagia or recent problems with swallowing. Patient was able to take PO Keflex and drank 250ml of water in AM. However, she requires lots of prompts from 1:1 for eating and drinking. Objective: Vital Signs Temp Pulse Resp BP Pulse Ox 36.8 C 60 14 119/57 L 95 10/31/17 08:00 10/31/17 08:00 10/31/17 08:00 10/31/17 09:42 10/31/17 08:00 Laboratory Results 10/30/17 08:45 10/30/17 08:45 10/30/17 10/31/17 11/01/17 05:59 05:59 05:59 Intake Total 2600 250 Balance 2600 250 MSE: Affect: Flat Mood: No response TP: Unable to assess TC: denies SI/HI when asked by staff Insight/Judgment: Poor - Time Spent With Patient Time Spent With Patient: 15" - Pending Discharge Pending Discharge Within 24 Hours: No Pending Discharge Within 48 Hours: No ICD10 Worksheet Patient Problems: Problems Problem Status Onset Bipolar 1 disorder, depressed, severe Acute Chest pain Acute Pulmonary embolism Acute Syncope Acute Anxiety Chronic Depression Chronic
--- NOTE | 2017-10-31 14:14 | ASMTBHMTP ---
Master Treatment Plan Master Treatment Plan Answers: Depressed Mood without for: Suicidal Ideation Date: 10/30/2017 Diagnosis on Admission: Bipolar I disorder Expected length of stay: 7-21 days Reason for admission: Notes: Patient is a 71 year old female with a life long history of severe Bipolar Disorder with a history of Catatonic Depression. Last admission was in October of 2014. Patient was lethargic, disorganized with psychomotor retardation. Patient's stated presenting problems: Notes: My depression was getting worse. Patient's goals for treatment: Notes: Mood stability, Sleeping 6-8 hours a night, attending groups and eating well. Patient's strengths: Notes: Patient has good insight and judgement and she likes to watch movies. Identify supports outside of hospital: Notes: Patients daughter, assisted living services, and psychiatrist. Discharge criteria: Notes: Mood stability, no suicidal ideation and demonstrated coping skills. Initial disposition plan/considerations: Notes: Discharge to assisted living facility and follow up with Dr. Calderon and PCP. Master Treatment Plan Required Signatures Psychiatrist signature: Answers: Lexx Mishra MD: RN on-shift signature: Answers: RN: Patient signature: Answers: Patient: Date Signed: 10/31/2017 02:13 PM Electronically Signed By:Aleena Nolasco
--- NOTE | 2017-10-31 14:21 | ASMTBHDC ---
Notes Note: Notes: Patient is on 1:1 safety precautions due to the risk of falling. Patient went to the emergency department yesterday and returned after getting an IV for rehydration. Patient also has a UTI. Patient reports she is feeling better today. She is in a wheelchair and goes to groups. Staff reports that patients food needs to be cut up, but she is able to feed herself. Staff also reports that patient is very slow to swallow her medications. Patient has asked several times when she is going home. She slept 6.5 hours last night. Date Signed: 10/31/2017 02:20 PM Electronically Signed By:Aleena Nolasco
[2017-10-31] MEDS: CEPHALEXIN 500 MG CAP PO SCH ×2 (16:24→21:18)
[2017-10-31] MEDS: RIVAROXABAN 20 MG TAB PO SCH (16:24)
[2017-10-31] MEDS: ARIPiprazole 10 MG TAB PO SCH (21:17)
[2017-11-01] MEDS: MELATONIN 3 MG TAB PO PRN (02:38)
[2017-11-01] MEDS: CEPHALEXIN 500 MG CAP PO SCH ×3 (09:00→21:20)
[2017-11-01] MEDS: LOSARTAN POTASSIUM 25 MG TAB PO SCH (09:00)
[2017-11-01] MEDS: ESCITALOPRAM OXALATE 10 MG TAB PO SCH (09:00)
[2017-11-01 09:27] LABS: PLATELET COUNT 222 10^3/uL (150-400)
--- NOTE | 2017-11-01 09:54 | PDMN ---
Medical Necessity Medical necessity: [facility]: [id number], Bipolar disorders, Adult: Inpatient Care: Bipolar 1 disorder, possible early catatonia, needs acute stabilization and consider restarting ECT, decreased BP 74/37
--- NOTE | 2017-11-01 16:39 | SOAPPROG ---
SOAP Progress Note Assessment/Plan: Assessment: Plan: 11/01/17 16:39 Bipolar D/o: Acute decompensation has improved a little. May represent combination of UTI and lithium toxicity. Will CCM, monitor. Flippin ECT for worsening of condition inc: emergence of psychosis or catatonia. Subjective: Pt seen, discussed with staff, chart reviewed. Seen in ED over weekend for hydration. [place] level 2.1. Eating adequately today, >50% of meals. Seated in wheelchair, slumped over. Looks lethargic. Mouth partly full of unchewed food. She interacts well, however. She calls me by name, maintains good eye contact. States she is "ready to go home." Smiles spontaneously and is able to appreciate humor. No delay in response. Remains on 1:1 due to fall concerns and direct care needs. Objective: Vital Signs Temp Pulse Resp BP Pulse Ox 36.9 C 58 L 14 135/96 H 95 11/01/17 08:00 11/01/17 08:00 11/01/17 08:00 11/01/17 08:00 11/01/17 08:00 Laboratory Results 11/01/17 06:35 11/01/17 06:35 10/31/17 11/01/17 11/02/17 05:59 05:59 05:59 Intake Total 2600 825 Output Total 250 Balance 2600 575 MSE: Calm, coop, interactive. Affect is blunted, though she does smile. Mood is "fine". TP abbreviated, though generally linear. TC reveals no psychosis. A &O to person and place. - Time Spent With Patient Time Spent With Patient: 25" ICD10 Worksheet Patient Problems: Problems Problem Status Onset Bipolar 1 disorder, depressed, severe Acute Chest pain Acute Pulmonary embolism Acute Syncope Acute Anxiety Chronic Depression Chronic
--- NOTE | 2017-11-01 16:43 | ASMTBHFAM ---
Notes Note: Notes: The patient completed an BETSY for [facility] staff to speak with her daughter and business staff at [facility]. Date Signed: 11/01/2017 04:42 PM Electronically Signed By:Ibis Arvizu
--- NOTE | 2017-11-01 17:26 | ASMTBHDC ---
Notes Note: Notes: The patient reported that today was the last day for her to make an appointment with the [facility] for required follow up services due to her recent arrest. CC called the [facility] to schedule an appointment on behalf of the patient. CC left a VM with the transplant case manager assigned to the patient, Eve Hernandez ([phone]). Date Signed: 11/01/2017 05:26 PM Electronically Signed By:Ibis Arvizu
[2017-11-01] MEDS: RIVAROXABAN 20 MG TAB PO SCH (18:03)
[2017-11-01] MEDS: ARIPiprazole 10 MG TAB PO SCH (21:21)
[2017-11-02] MEDS: MELATONIN 3 MG TAB PO PRN (00:28)
[2017-11-02] MEDS: ESCITALOPRAM OXALATE 10 MG TAB PO SCH (08:42)
[2017-11-02] MEDS: LOSARTAN POTASSIUM 25 MG TAB PO SCH (08:43)
[2017-11-02] MEDS: CEPHALEXIN 500 MG CAP PO SCH ×3 (08:43→20:28)
--- NOTE | 2017-11-02 09:00 | ASMTBHUR ---
Notes Note: Notes: CC notified by nurse that the patient's daughter wanted to speak with a CC. CC called Nancy ([phone]) to check in; DOC is concerned that her mother's insurance will be gone at the end of the month. She was in a custodial facility with a plan to discharge to assisted living; this plan was only good through the end of the month (October). DOC stated, "after that she won't have any insurance, I need to know how to get it back to medicare so that she has insurance." DOC is concerned that the patient has decompensated and is unable to sign documents or speak to insurance on her own. Date Signed: 11/02/2017 08:49 AM Electronically Signed By:Ibis Arvizu
--- NOTE | 2017-11-02 14:59 | SOAPPROG ---
SOAP Progress Note Assessment/Plan: Assessment: Plan: 11/01/17 16:39 Bipolar D/o: Acute decompensation has improved a little. May represent combination of UTI and lithium toxicity. Will CCM, monitor. Darling ECT for worsening of condition inc: emergence of psychosis or catatonia. 11/02/17 15:03 Bipolar D/o: Continues to appear "medical" in presentation. Will continue to monitor, offer water. Continue to hold lithium until PO intake normalizes. Will change Lexapro back to Effexor as she seems to have done better on this in the past. Unclear why facility changed. Pt's daughter agrees. I spoke with pt 's PCP who agrees with this also. Subjective: Pt seen, discussed with staff. Discussed with patient's daughter Nancy who is her MPOA. She remains lethargic but alert. She is eating and drinking poorly. Staff is concerned she cannot swallow as she hold food in her mouth, but I am able to give her her water bottle with a straw and she is able to drink and swallow slowly, but without difficulty or choking. She interacts appropriately , stating she wants to return to the SNF, naming several staff members by name who she stats she misses. Pt's daughter states she does not want her to do any more ECT at this point until she is physically recuperated. Objective: Vital Signs Temp Pulse Resp BP Pulse Ox 36.9 C 60 14 133/78 H 94 11/02/17 04:35 11/02/17 04:35 11/02/17 04:35 11/02/17 04:35 11/02/17 04:35 Laboratory Results 11/01/17 06:35 11/01/17 06:35 11/01/17 11/02/17 11/03/17 05:59 05:59 05:59 Intake Total 825 820 Output Total 250 600 Balance 575 220 MSE: Calm, coop. Marked psychomotor retardation is unchanged. Affect is blunted, but she does smile appropriately. Mood is "fine." TP is abbreviated, slow, but generally linear. TC reveals no psychosis. She is A&Ox3. - Time Spent With Patient Time Spent With Patient: 25" ICD10 Worksheet Patient Problems: Problems Problem Status Onset Bipolar 1 disorder, depressed, severe Acute Anxiety Chronic Depression Chronic Chest pain Acute Pulmonary embolism Acute Syncope Acute
[2017-11-02] MEDS: RIVAROXABAN 20 MG TAB PO SCH (16:03)
[2017-11-02] MEDS: ARIPiprazole 10 MG TAB PO SCH (20:28)
[2017-11-03] MEDS: ESCITALOPRAM OXALATE 10 MG TAB PO SCH (08:58)
[2017-11-03] MEDS: CEPHALEXIN 500 MG CAP PO SCH ×3 (08:58→21:13)
[2017-11-03] MEDS: LOSARTAN POTASSIUM 25 MG TAB PO SCH (08:58)
[2017-11-03] MEDS: VENLAFAXINE XR 75 MG CAP PO SCH (09:02)
--- NOTE | 2017-11-03 15:25 | SOAPPROG ---
SOAP Progress Note Assessment/Plan: Assessment: Plan: 11/01/17 16:39 Bipolar D/o: Acute decompensation has improved a little. May represent combination of UTI and lithium toxicity. Will CCM, monitor. [place] ECT for worsening of condition inc: emergence of psychosis or catatonia. 11/02/17 15:03 Bipolar D/o: Continues to appear "medical" in presentation. Will continue to monitor, offer water. Continue to hold lithium until PO intake normalizes. Will change Lexapro back to Effexor as she seems to have done better on this in the past. Unclear why facility changed. Pt's daughter agrees. I spoke with pt 's PCP who agrees with this also. 11/03/17 15:25 Bipolar D/o: Improving. Parkinsonism is certainly prominent. Will CCM, may decrease Abilify further. Subjective: Pt seen, discussed with staff. Up in day room, walking in halls with walker. Moving briskly but in a Parkinsonian gait. More alert and interactive today. PO intake remains marginal. Objective: Vital Signs Temp Pulse Resp BP Pulse Ox 36.8 C 79 18 148/70 H 95 11/03/17 09:06 11/03/17 10:18 11/03/17 09:06 11/03/17 10:18 11/03/17 09:06 Laboratory Results 11/01/17 06:35 11/01/17 06:35 11/02/17 11/03/17 11/04/17 05:59 05:59 05:59 Intake Total 820 1500 270 Output Total 600 350 400 Balance 220 1150 -130 MSE: Calm, coop. Affect is blunted, but smiles frequently. Mood is "good." TP generally linear. TC reveals no psychosis. A&Ox3. - Time Spent With Patient Time Spent With Patient: 15" ICD10 Worksheet Patient Problems: Problems Problem Status Onset Bipolar 1 disorder, depressed, severe Acute Chest pain Acute Pulmonary embolism Acute Syncope Acute Anxiety Chronic Depression Chronic
[2017-11-03] MEDS: RIVAROXABAN 20 MG TAB PO SCH (16:40)
[2017-11-03] MEDS: ARIPiprazole 10 MG TAB PO SCH (21:13)
[2017-11-03] MEDS: MELATONIN 3 MG TAB PO PRN (21:13)
[2017-11-04] MEDS: VENLAFAXINE XR 75 MG CAP PO SCH (09:00)
[2017-11-04] MEDS: LOSARTAN POTASSIUM 25 MG TAB PO SCH (09:00)
[2017-11-04] MEDS: ESCITALOPRAM OXALATE 10 MG TAB PO SCH (09:02)
[2017-11-04] MEDS: CEPHALEXIN 500 MG CAP PO SCH ×3 (09:02→20:51)
--- NOTE | 2017-11-04 14:15 | ASMTBHDC ---
Notes Note: Notes: CC speaks to daughter regarding MOC progress and next steps (post discharge), as well as help answer many of the questions she had. DOC noted, that she would like for her mother to return to "[facility], ([facility])," in which the point person is Audrey , etc. Audrey was on the unit today and this CC spoke to her regarding client and discharge, etc. Audrey is willing to have client back at [facility] and can pick client up on WednesdayNovember 08 (for transportation, etc.). CC ran this by doctor, who was comfortable with this plan, etc. Audrey will contact this va underwriter before the weekend to confirm a time on Wednesday in which client will be discharged and transported to [facility], etc. Date Signed: 11/04/2017 02:15 PM Electronically Signed By:Dharmesh Diamond
--- NOTE | 2017-11-04 16:21 | SOAPPROG ---
SOAP Progress Note Assessment/Plan: Assessment: Plan: 11/01/17 16:39 Bipolar D/o: Acute decompensation has improved a little. May represent combination of UTI and lithium toxicity. Will CCM, monitor. [place] ECT for worsening of condition inc: emergence of psychosis or catatonia. 11/02/17 15:03 Bipolar D/o: Continues to appear "medical" in presentation. Will continue to monitor, offer water. Continue to hold lithium until PO intake normalizes. Will change Lexapro back to Effexor as she seems to have done better on this in the past. Unclear why facility changed. Pt's daughter agrees. I spoke with pt 's PCP who agrees with this also. 11/03/17 15:25 Bipolar D/o: Improving. Parkinsonism is certainly prominent. Will CCM, may decrease Abilify further. 11/04/17 16:24 Bipolar D/o: Continued improvement. CCM. Finalize d/c plan to [facility]. Subjective: Pt seen, discussed with staff. Up and walking around unit with walker. Standing at sink combing her hair and grooming later. Discussed d/c plan. She had no preference on going back to [facility] or going to [facility]. Pt's D and the staff at the [facility] believe they can manage her there. Eating and drinking better. Objective: Vital Signs Temp Pulse Resp BP Pulse Ox 36.8 C 63 12 100/51 L 93 11/04/17 09:59 11/04/17 09:59 11/04/17 09:59 11/04/17 09:59 11/04/17 09:59 Laboratory Results 11/01/17 06:35 11/01/17 06:35 11/03/17 11/04/17 11/05/17 05:59 05:59 05:59 Intake Total 1500 420 Output Total 350 500 Balance 1150 -80 MSE: Calm, coop., appropriately interactive. Affect is blunted, though smiles frequently. Mood is "good" TP is abbreviated, generally linear. TC reveals no psychosis. Cognition stable. - Time Spent With Patient Time Spent With Patient: 15" ICD10 Worksheet Patient Problems: Problems Problem Status Onset Bipolar 1 disorder, depressed, severe Acute Chest pain Acute Pulmonary embolism Acute Syncope Acute Anxiety Chronic Depression Chronic
[2017-11-04] MEDS: RIVAROXABAN 20 MG TAB PO SCH (17:12)
[2017-11-04] MEDS: ARIPiprazole 10 MG TAB PO SCH (20:49)
[2017-11-05] MEDS: LOSARTAN POTASSIUM 25 MG TAB PO SCH (09:17)
[2017-11-05] MEDS: VENLAFAXINE XR 75 MG CAP PO SCH (09:17)
[2017-11-05] MEDS: ESCITALOPRAM OXALATE 10 MG TAB PO SCH (09:17)
[2017-11-05] MEDS: CEPHALEXIN 500 MG CAP PO SCH ×3 (09:17→20:43)
--- NOTE | 2017-11-05 09:31 | ASMTBHDC ---
Notes Note: Notes: CC was able to confirm knot picker cloth date and time via Audrey with [facility]: Added below information into client's discharge checklst. Follow up with: [facility] [id number] [place] [address] Audrey will knot picker cloth client on WednesdayNovember 08 at 1pm.* Called and confirmed time and date for discharge and transportation of client. Date Signed: 11/05/2017 09:30 AM Electronically Signed By:Dharmesh Diamond
--- NOTE | 2017-11-05 16:11 | SOAPPROG ---
SOAP Progress Note Assessment/Plan: Assessment: Plan: 11/01/17 16:39 Bipolar D/o: Acute decompensation has improved a little. May represent combination of UTI and lithium toxicity. Will CCM, monitor. [place] ECT for worsening of condition inc: emergence of psychosis or catatonia. 11/02/17 15:03 Bipolar D/o: Continues to appear "medical" in presentation. Will continue to monitor, offer water. Continue to hold lithium until PO intake normalizes. Will change Lexapro back to Effexor as she seems to have done better on this in the past. Unclear why facility changed. Pt's daughter agrees. I spoke with pt 's PCP who agrees with this also. 11/03/17 15:25 Bipolar D/o: Improving. Parkinsonism is certainly prominent. Will CCM, may decrease Abilify further. 11/04/17 16:24 Bipolar D/o: Continued improvement. CCM. Finalize d/c plan to [facility]. 11/05/17 16:11 Bipolar D/o: Doing much better. Hope to d/c to [facility] on Wednesday. Subjective: Pt seen, discussed with staff. Much improved today. Able to come off of 1:1 without incident. Using walker appropriately. She is alert and interactive with me today. States she is ready to return to [facility]. PO intake better. Objective: Vital Signs Temp Pulse Resp BP Pulse Ox 37.0 C 65 16 141/76 H 94 11/05/17 14:56 11/05/17 14:56 11/05/17 14:56 11/05/17 14:56 11/05/17 14:56 Laboratory Results 11/01/17 06:35 11/01/17 06:35 11/04/17 11/05/17 11/06/17 05:59 05:59 05:59 Intake Total 420 340 900 Output Total 500 450 Balance -80 -110 900 MSE: Better groomed, interactive. Affect is brighter, less blunted. Mood is "good." TP linear. TC reveals no psychosis. A&Ox3. - Time Spent With Patient Time Spent With Patient: 15" ICD10 Worksheet Patient Problems: Problems Problem Status Onset Bipolar 1 disorder, depressed, severe Acute Chest pain Acute Pulmonary embolism Acute Syncope Acute Anxiety Chronic Depression Chronic
[2017-11-05] MEDS: RIVAROXABAN 20 MG TAB PO SCH (16:22)
[2017-11-05] MEDS: ARIPiprazole 10 MG TAB PO SCH (20:07)
[2017-11-06] MEDS: CEPHALEXIN 500 MG CAP PO SCH ×3 (08:50→21:03)
[2017-11-06] MEDS: ESCITALOPRAM OXALATE 10 MG TAB PO SCH (08:50)
[2017-11-06] MEDS: LOSARTAN POTASSIUM 25 MG TAB PO SCH (08:50)
[2017-11-06] MEDS: VENLAFAXINE XR 75 MG CAP PO SCH (08:56)
--- NOTE | 2017-11-06 15:33 | SOAPPROG ---
SOAP Progress Note Assessment/Plan: Assessment: 71 yo woman recently transitioned from SNF to [facility], presented for maintenance ECT on 10/29/17 and was admitted to d/t lethargy and psychomotor retardation. Staff at [facility] report change in mental status over past week. Per Dr. Mishra's note: 11/01/17 16:39 Bipolar D/o: Acute decompensation has improved a little. May represent combination of UTI and lithium toxicity. Will CCM, monitor. [place] ECT for worsening of condition inc: emergence of psychosis or catatonia. 11/02/17 15:03 Bipolar D/o: Continues to appear "medical" in presentation. Will continue to monitor, offer water. Continue to hold lithium until PO intake normalizes. Will change Lexapro back to Effexor as she seems to have done better on this in the past. Unclear why facility changed. Pt's daughter agrees. I spoke with pt 's PCP who agrees with this also. 11/03/17 15:25 Bipolar D/o: Improving. Parkinsonism is certainly prominent. Will CCM, may decrease Abilify further. 11/04/17 16:24 Bipolar D/o: Continued improvement. CCM. Finalize d/c plan to [facility]. 11/05/17 16:11 Bipolar D/o: Doing much better. Hope to d/c to [facility] on Wednesday. 11/06/17 15:28 1. Patient is ambulating with walker and is able to feed herself properly. 2. Patient consumed > 600cc's of fluid this AM, at 100% of breakfast. 3. Anticipate d/c back to [facility], [facility] on Wednesday. Subjective: Met with patient , reviewed chart and d/w staff. Patient was walking down [address] with assistance from walker. She handed phone back to MD with pleasant smile. MD reminded patient he met her last weekend before she went to ED for IVF. She said, "I don't remember." Patient reports feeling "better," with more energy this week. She says she didn't remember going to ED last week. May return to [facility] on Wednesday. Objective: Vital Signs Temp Pulse Resp BP Pulse Ox 37.0 C 72 16 157/71 H 94 11/05/17 14:56 11/06/17 08:45 11/06/17 08:45 11/06/17 08:50 11/06/17 08:45 Laboratory Results 11/01/17 06:35 11/01/17 06:35 11/05/17 11/06/17 11/07/17 05:59 05:59 05:59 Intake Total 340 2200 Output Total 450 Balance -110 2200 MSE: Affect: Cheerful Mood: "Good" TP: Organized, coherent TC: Denies any SI/ HI, no AH/VH Insight/Judgment: Improving - Time Spent With Patient Time Spent With Patient: 15" - Pending Discharge Pending Discharge Within 24 Hours: No Pending Discharge Within 48 Hours: No ICD10 Worksheet Patient Problems: Problems Problem Status Onset Bipolar 1 disorder, depressed, severe Acute Chest pain Acute Pulmonary embolism Acute Syncope Acute Anxiety Chronic Depression Chronic
[2017-11-06] MEDS: ARIPiprazole 10 MG TAB PO SCH (21:01)
[2017-11-06] MEDS: RIVAROXABAN 20 MG TAB PO SCH (21:03)
[2017-11-07] MEDS: VENLAFAXINE XR 75 MG CAP PO SCH (08:45)
[2017-11-07] MEDS: ESCITALOPRAM OXALATE 10 MG TAB PO SCH (08:45)
[2017-11-07] MEDS: CEPHALEXIN 500 MG CAP PO SCH (08:46)
[2017-11-07] MEDS: LOSARTAN POTASSIUM 25 MG TAB PO SCH (08:46)
--- NOTE | 2017-11-07 14:51 | SOAPPROG ---
SOAP Progress Note Assessment/Plan: Assessment: 71 yo woman recently transitioned from SNF to [facility], presented for maintenance ECT on 10/29/17 and was admitted to d/t lethargy and psychomotor retardation. Staff at [facility] report change in mental status over past week. Per Dr. Mishra's note: 11/01/17 16:39 Bipolar D/o: Acute decompensation has improved a little. May represent combination of UTI and lithium toxicity. Will CCM, monitor. [place] ECT for worsening of condition inc: emergence of psychosis or catatonia. 11/02/17 15:03 Bipolar D/o: Continues to appear "medical" in presentation. Will continue to monitor, offer water. Continue to hold lithium until PO intake normalizes. Will change Lexapro back to Effexor as she seems to have done better on this in the past. Unclear why facility changed. Pt's daughter agrees. I spoke with pt 's PCP who agrees with this also. 11/03/17 15:25 Bipolar D/o: Improving. Parkinsonism is certainly prominent. Will CCM, may decrease Abilify further. 11/04/17 16:24 Bipolar D/o: Continued improvement. CCM. Finalize d/c plan to [facility]. 11/05/17 16:11 Bipolar D/o: Doing much better. Hope to d/c to [facility] on Wednesday. 11/06/17 15:28 1. Patient is ambulating with walker and is able to feed herself properly. 2. Patient consumed > 600cc's of fluid this AM, at 100% of breakfast. 3. Anticipate d/c back to [facility], [facility] on Wednesday. 11/07/17 14:48 1. Ambulating with assistance from walker. 2. Able to take shower and perform ADLs without assistance. 3. Ate 75% of breakfast and continues to drink adequate fluids. No evidence of any swallowing problems. 4. Stays in bed most of the day, doesn't attend any groups. Subjective: Met with patient, reviewed chart and d/w staff. Patient walking in hallway with walker. Later, sitting on couch by herself. She denies any physical complaints. She slept 8 hrs last night and ate 75% of breakfast. She denies any SI/HI. Objective: Vital Signs Temp Pulse Resp BP Pulse Ox 36.6 C 68 20 130/80 H 95 11/07/17 06:34 11/07/17 08:44 11/07/17 08:44 11/07/17 08:46 11/07/17 08:44 Laboratory Results 11/01/17 06:35 11/01/17 06:35 11/06/17 11/07/17 11/08/17 05:59 05:59 05:59 Intake Total 2200 720 1000 Balance 2200 720 1000 MSE: Affect: Euthymic Mood: "Good" TP: More linear and goal-directed TC: Denies AH/VH, no SI/HI Insight/Judgment: Improving - Time Spent With Patient Time Spent With Patient: 15" - Pending Discharge Pending Discharge Within 24 Hours: No Pending Discharge Within 48 Hours: No ICD10 Worksheet Patient Problems: Problems Problem Status Onset Bipolar 1 disorder, depressed, severe Acute Chest pain Acute Pulmonary embolism Acute Syncope Acute Anxiety Chronic Depression Chronic
[2017-11-07] MEDS: RIVAROXABAN 20 MG TAB PO SCH (17:41)
[2017-11-07] MEDS: ARIPiprazole 10 MG TAB PO SCH (20:24)
[2017-11-08 06:32] VITALS: BP 107/51
[2017-11-08] MEDS: ESCITALOPRAM OXALATE 10 MG TAB PO SCH (08:19)
[2017-11-08] MEDS: LOSARTAN POTASSIUM 25 MG TAB PO SCH (08:19)
[2017-11-08] MEDS: VENLAFAXINE XR 75 MG CAP PO SCH (08:20)
--- NOTE | 2017-11-08 11:28 | ASMTBHDC ---
Notes Note: Notes: Pt reports feeling "good" and stated she "slept good". Pt. reports no issues with her medications, other than they need to be crushed for pt. to take them. Pt. stated he "feels good" about discharging today. Pt. denied SI, HI, AVH and paranoia. Pt. is schedule to discharge at 1pm to [facility] assisted living. Pt. presents as improved compared to last week, alert, calm, with a mostly pleasant demeanor, and with good eye contact Date Signed: 11/08/2017 11:27 AM Electronically Signed By:Kathie Lewis
--- NOTE | 2017-11-09 18:36 | BDS ---
[f rep st] [facility] DISCHARGE SUMMARY REASON FOR ADMISSION: Patient is a 71-year-old female with history of bipolar disorder. 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 I had treated her in the hospital on numerous occasions in the past, usually requiring ECT due to the severity of her symptoms. She has done well on long-term maintenance ECT until about the last 3 months. She had been attempting to decrease frequency of her ECT treatments and has seen that her mood destabilized. She was experiencing hypomania and then more severe depression, and we had actually increased frequency of her treatments to adjust to this. We had just begun stretching them back out when she appeared to have a mental status change. She presen jamey for ECT treatment and appeared to be possibly delirious. We [facility] to sort out the medical from the acute psychiatric. Full description of the events preceding admission can be found in her admission history dated 10/29/2017. ADMITTING DIAGNOSES: 1. Bipolar 1 disorder, most recent episode mixed, severe, without psychosis. 2. Possible early catatonia. 3. Chronic illness. 4. Recurrent illness. 5. Recent transition and marginal community supports. ADMISSION PHYSICAL EXAMINATION: Performed by Dr. Brayan Parks, revealed no acute physical findings, though she was noted to be hypotensive, lithium toxic, and possible acute kidney injury. ADMISSION LABORATORY: CBC showed an H and H down at 11.8, and 36.8, respectively. Serum chemistries showed creatinine up at 1.5. Urinalysis showed 25-50 white blood cells, trace bacteria, hyaline kal ts, 1+ LE positive, nitrate negative, with no blood or ketones. [place] level was 2.1. HOSPITAL COURSE: Patient was admitted to the [facility] inpatient unit on a voluntary basis. She was pretty out of it, just appearing sedated, delayed, and hypoactive. She was kept in a wheelchair due to a concern for her gait stability, though typically maintains without additional alanis pport. She does have a walker at the [facility] because of a tendency for some atypical falls and what is thought to be pseudoseizures as much for confidence as anything, but she does not have any pr evious significant gait problems. She was unable to transfer or walk and was placed on a one-to-one supervision immediately. She was lucid and did not appear to be delirious but was definitely delayed in her responses. Her urinalysis showed significant UTI, and then she was transferred to the emerge ncy department where she received fluids and Rocephin. She was transferred back to the unit, and her labs had normalized with her lithium level after hydration decreasing to 1.3, and her creatinine dec reasing to 1.1. Patient was maintained on the unit with no further [place], as her p.o. intake was very poor. We con tinued the Abilify; but, after discussion with the patient's daughter, Nancy, it was noted that her hypertonicity, tremor, and parkinsonian gait had been worsening for some time. We ultimately decreas ed it to 10 mg from 15, and we noticed some improvement in those areas. She had been taking Lexapro in replacement for Effexor, though it is unclear why this had been done. I spoke to her PCP several months ago, and it was unclear who had made that decision. It was her daughter's opinion that she di d better with the Effexor, and Gris herself stated that she would prefer to be on Effexor than Le xapro, so we switched it back, crossing over to 75 mg with 10 mg of Lexapro and then 150 mg with no L exapro at the time of discharge. She tolerated this transition well. Patient's hospitalization was uncomplicated. She gradually improved, being able to ambulate more nor jono, though still in a mild Parkinsonian manner. She was eating and drinking well on her own, and the acute physical difficulty seemed to have passed. It seemed clear that these were most likely due to a combination of the UTI and lithium toxicity. I had ongoing discussions with her daughter and the care team, and it was felt that she could continu e to transition from her detention facility to the assisted living facility, in which she had p lanned to return. Audrey from the assisted living facility stated that she believed that she could safely care for her there, and patient's daughter, Nancy, was supportive. We, therefore, made the p erin for her to discharge to the assisted [facility]. Patient was very pleased by this. We did not, however, restart her lithium and had decreased the Abilify and restart ed the Effexor. These changes will need to be monitored. CONDITION AT DISCHARGE: Stable. Her affect was euthymic, stable, and appropriate. She was interact ing normally, was ambulating normally, eating, drinking, and attending to her ADLs independently. DISCHARGE MEDICATIONS: Abilify 10 mg p.o. q.h.s., Effexor XR 150 mg daily, Xarelto 20 mg at h.s., lo sartan 12.5 mg daily, nitroglycerin 0.5 mg sublingual p.r.n., trazodone 150 mg at h.s. DISCHARGE DIAGNOSES: 1. Bipolar 1 disorder, most recent episode mixed, moderate. 2. [place] toxicity. 3. Urinary tract infection. 4. Dehydration. 5. Acute mental status change. DISPOSITION: Patient left the hospital with staff from a [facility] to go to the assisted living facility. Patient was given instructions at the time of discharge. Additional instructions were for her to sal l and make an appointment with me in 2-3 weeks to follow up for general evaluation but not for ECT. Patient was voluntary throughout her stay. Patient's attitude was positive and happy at the time of discharge. Patient was a full code throughout her stay. There were no pending labs or studies at the time of discharge. /[id number]
== END 2017-11-08 13:36 | DRG 885 ==
LOC: BBEH 12:45
PROVIDERS: ADMIT Psychiatry & Neurology Psychiatry; ATTEND Psychiatry & Neurology Psychiatry
DX: F31.62 Bipolar disorder, current episode mixed, moderate (principal); T56.891A Toxic effect of other metals, accidental (unintentional), initial encounter; N39.0 Urinary tract infection, site not specified; E86.0 Dehydration; I10 Essential (primary) hypertension; Z79.01 Long term (current) use of anticoagulants; Z87.891 Personal history of nicotine dependence; Z86.711 Personal history of pulmonary embolism

== ENCOUNTER 2017-10-30 15:27 | Emergency (ER) | payer OTHER ==
--- NOTE | 2017-10-30 15:29 | EDPHY ---
H & P Time Seen by Provider: 10/30/17 15:28 HPI/ROS: HPI: This is a 71-year-old female who presents with Chief Complaint: Location: Quality: Duration: Signs and Symptoms: Timing: Severity: Context: Modifying Factors: Comment: ROS: see HPI Constitutional: No fever, no chills, no weight loss Eyes: No blurred vision Respiratory: No shortness of breath, no cough Cardiovascular: No chest pain Gastrointestinal: No nausea, no vomiting, no diarrhea Genitourinary: No dysuria Extremities: No myalgias Neurologic: No weakness, no numbness Skin: No rashes Hematologic: No bruising, no bleeding MEDICAL/SURGICAL/SOCIAL HISTORY: Medical history: hypertension, dyslipidemia, R/O dementia, major depressive disorder, hypothyroid, bipolar Surgical history: Denies Social history: Family history noncontributory. CONSTITUTIONAL: awake and alert, no obvious distress HEENT: Atraumatic and normocephalic, PERRL, EOMI. Nares patent; no rhinorrhea; no nasal mucosal edema. Tympanic membranes clear. Oropharynx clear, no exudate and moist pink mucosa. Airway patent. No lymphadenopathy. No meningismus. Cardiovascular: Normal S1/S2, regular rate, regular rhythm, without murmur rub or gallop. PULMONARY/CHEST: Symmetrical and nontender. Clear to auscultation bilaterally. Good air movement. No accessory muscle usage. ABDOMEN: Soft, nondistended, nontender, no rebound, no guarding, no peritoneal signs, no masses or organomegaly. No CVAT. EXTREMITIES: 2/2 pulses, strength 5/5, no deformities, no clubbing, no cyanosis or edema. NEUROLOGICAL: no focal neuro deficits. GCS 15. SKIN: Warm and dry, no erythema. no rash. Good capillary refill. Source: Patient, RN/MD, Old records - Medical/Surgical History Hx Asthma: No Hx Chronic Respiratory Disease: No Hx Diabetes: No Hx Cardiac Disease: Yes Hx Renal Disease: No Hx Cirrhosis: No Hx Alcoholism: No Hx HIV/AIDS: No Hx Splenectomy or Spleen Trauma: No Other PMH: Hx of hypertension, dyslipidemia, R/O dementia, major depressive disorder, hypothyroid, bipolar - Social History Smoking Status: Former smoker Allergies/Adverse Reactions: Penicillins Allergy (Intermediate, Verified 06/18/17 11:36) h/a rash Tetracyclines Allergy (Intermediate, Verified 06/18/17 11:36) h/a rash latex Allergy (Verified 06/18/17 11:36) Rash Home Medications: Medication Instructions Recorded Acetaminophen [Tylenol 325mg (*)] 650 mg PO Q6 PRN 11/08/14 Losartan Potassium [Cozaar 25 mg 12.5 mg PO DAILY 05/29/16 (*)] Meclizine HCl [Meclizine HCl 25 mg 12.5 mg PO Q6 PRN 05/29/16 (RX,OTC)] Polyethylene Glycol 3350 [Miralax 17 gm PO DAILY 05/29/16 17 gm (*)] Rivaroxaban [Xarelto] 20 mg PO HS 05/29/16 Lexapro 20 mg PO DAILY 08/02/17 Multivitamin (*) 1 tab PO DAILY 08/02/17 traZODone 150 mg PO HS 08/02/17 Abilify 15 mg PO HS 08/04/17 Levothyroxine [Synthroid 100 mcg 50 mcg PO DAILY06 08/09/17 (*)] Vitamin D3 50,000 units PO 08/25/17 Nitroglycerin 0.4 mg SL PRN 09/03/17 [place] Carbonate 300 mg PO BID 10/06/17
[2017-10-30] MEDS ORDERED: NS 1,000 ML IV ONE ×2 (15:36→15:43)
--- NOTE | 2017-10-30 15:42 | EDPHY ---
H & P Stated Complaint: sent [facility] from [facility] for ?UTI Time Seen by Provider: 10/30/17 15:28 HPI/ROS: CHIEF COMPLAINT: Urinary tract infection HISTORY OF PRESENT ILLNESS: The patient is a 71-year-old female who is transferred from [address] [place] [address] for urinary tract infection. She has been admitted there for bipolar 1 and ECT therapy. She is there voluntarily. She has been borderline catatonic. This morning was noticed that her blood pressure was low however on repeat pressures it was normal. She also had slightly low oxygen but she is supposed to be wearing 2 L nasal cannula at baseline and had not been. She had a medical consultation and was found that she had a slightly elevated creatinine and lithium level and urinary tract infection. They sent her here for IV hydration and antibiotics and recheck of her lab work. The plan was that if her lab work is improving and she is stable mentally that she may return back to mental health floor. REVIEW OF SYSTEMS: Constitutional: denies: chills, fever, recent illness, recent injury EENTM: denies: blurred vision, double vision, nose congestion Respiratory: denies: cough, shortness of breath Cardiac: denies: chest pain, irregular heart rate, lightheadedness, palpitations Gastrointestinal/Abdominal: denies: abdominal pain, diarrhea, nausea, vomiting, blood streaked stools Genitourinary: denies: dysuria, frequency, hematuria, pain Musculoskeletal: denies: joint pain, muscle pain Skin: denies: lesions, rash, jaundice, bruising Neurological: denies: headache, numbness, paresthesia, tingling, dizziness, weakness Hematologic/Lymphatic: denies: blood clots, easy bleeding, easy bruising Immunologic/allergic: denies: HIV/AIDS, transplant EXAM: GENERAL: no acute distress. States that she does not know why she is here and that she feels fine HEAD: Atraumatic, normocephalic. EYES: Pupils equal round and reactive to light, extraocular movements intact, sclera anicteric, conjunctiva are normal. ENT: TMs normal, nares patent, oropharynx clear without exudates. Moist mucous membranes. NECK: Normal range of motion, supple without lymphadenopathy or JVD. LUNGS: Breath sounds clear to auscultation bilaterally and equal. No wheezes rales or rhonchi. HEART: Regular rate and rhythm without murmurs, rubs or gallops. ABDOMEN: Soft, nontender, normoactive bowel sounds. No guarding, no rebound. No masses appreciated. BACK: No CVA tenderness, no spinal tenderness, step-offs or deformities EXTREMITIES: Normal range of motion, no pitting or edema. No clubbing or cyanosis. NEUROLOGICAL: Cranial nerves II through XII grossly intact. Normal speech, normal gait. 5/5 strength, normal movement in all extremities, normal sensation PSYCH: Normal mood, normal affect. SKIN: Warm, dry, normal turgor, no visible rashes or lesions. Source: Patient Exam Limitations: No limitations - Personal History Current Tetanus/Diphtheria Vaccine: Yes - Medical/Surgical History Hx Asthma: No Hx Chronic Respiratory Disease: No Hx Diabetes: No Hx Cardiac Disease: No Hx Renal Disease: No Hx Cirrhosis: No Hx Alcoholism: No Hx HIV/AIDS: No Hx Splenectomy or Spleen Trauma: No Other PMH: Hx of hypertension, dyslipidemia, pulmonary embolism, major depressive disorder, hypothyroid, bipolar, nonepileptic seizures - Family History Significant Family History: No pertinent family hx - Social History Smoking Status: Former smoker Alcohol Use: Sober Constitutional: Initial Vital Signs Temperature (C) 37 C 10/30/17 15:35 Heart Rate 63 10/30/17 15:35 Respiratory Rate 16 10/30/17 15:35 Blood Pressure 113/69 10/30/17 15:35 O2 Sat (%) 94 10/30/17 15:35 O2 Delivery Mode Room Air Allergies/Adverse Reactions: Penicillins Allergy (Intermediate, Verified 06/18/17 11:36) h/a rash Tetracyclines Allergy (Intermediate, Verified 06/18/17 11:36) h/a rash latex Allergy (Verified 06/18/17 11:36) Rash Home Medications: Medication Instructions Recorded Acetaminophen [Tylenol 325mg (*)] 650 mg PO Q6 PRN 11/08/14 Losartan Potassium [Cozaar 25 mg 12.5 mg PO DAILY 05/29/16 (*)] Meclizine HCl [Meclizine HCl 25 mg 12.5 mg PO Q6 PRN 05/29/16 (RX,OTC)] Polyethylene Glycol 3350 [Miralax 17 gm PO DAILY 05/29/16 17 gm (*)] Rivaroxaban [Xarelto] 20 mg PO HS 05/29/16 Lexapro 20 mg PO DAILY 08/02/17 Multivitamin (*) 1 tab PO DAILY 08/02/17 traZODone 150 mg PO HS 08/02/17 Abilify 15 mg PO HS 08/04/17 Levothyroxine [Synthroid 100 mcg 50 mcg PO DAILY06 08/09/17 (*)] Vitamin D3 50,000 units PO 08/25/17 Nitroglycerin 0.4 mg SL PRN 09/03/17 [place] Carbonate 300 mg PO BID 10/06/17 Cephalexin [Keflex] 500 mg PO TID #21 cap 10/30/17 Medical Decision Making ED Course/Re-evaluation: 6:30 p.m. lab work has resulted from the wrong blood draw. We will reorder the labs. 6:50 p.m. the patient's lab work is slightly improved. It is going in the right direction. Here her vital signs have been completely stable. She has had normal blood pressure and oxygenation. I feel that she can succeed back on [address] [place] [address]. We have paged the physician over there to discuss. 7:50 p.m. I spoke with Dr. Cortez from [address] [place] [address]. He accepted her back. She is now drinking p.o. Fluids. She is following commands and interactive. She has received antibiotics for her urinary tract infection and he will continue her on Keflex. He will discontinue her lithium. Differential Diagnosis: Partial list of the Differential diagnosis considered include but were not limited to; dehydration, medication toxicity and although unlikely based on the history and physical exam, I also considered sepsis, hypovolemia, acute coronary disease, pneumonia, PE - Data Points Laboratory Results: Laboratory Results 10/30/17 18:15 10/30/17 10/30/17 18:15 15:27 Sodium 142 mEq/L mEq/L 141 mEq/L mEq/L (135-145) (135-145) Potassium 4.0 mEq/L mEq/L 4.0 mEq/L mEq/L (3.3-5.0) (3.3-5.0) Chloride 111 mEq/L H mEq/L 107 mEq/L mEq/L (97-110) (97-110) Carbon Dioxide 25 mEq/l mEq/l 26 mEq/l mEq/l (22-31) (22-31) Anion Gap 6 mEq/L L mEq/L 8 mEq/L mEq/L (8-16) (8-16) BUN 11 mg/dL mg/dL 13 mg/dL mg/dL (7-23) (7-23) Creatinine 1.3 mg/dL H mg/dL 1.4 mg/dL H mg/dL (0.6-1.0) (0.6-1.0) Estimated GFR 41 37 Glucose 83 mg/dL mg/dL 112 mg/dL H mg/dL (70-100) (70-100) Calcium 9.3 mg/dL mg/dL 10.0 mg/dL mg/dL (8.5-10.4) (8.5-10.4) [place] 1.8 mEq/L H mEq/L 1.9 mEq/L H mEq/L (0.6-1.2) (0.6-1.2) Medications Given: Discontinued Medications Ceftriaxone Sodium/Dextrose (Rocephin 1 Gm (Premix)) 50 mls @ 100 mls/hr IV EDNOW ONE PRN Reason: Protocol Stop: 10/30/17 16:06 Last Admin: 10/30/17 15:48 Dose: 50 mls Sodium Chloride (Ns) 1,000 mls @ 0 mls/hr IV ONCE ONE; Wide Open PRN Reason: Protocol Stop: 10/30/17 15:37 Last Admin: 10/30/17 15:47 Dose: 1,000 mls Sodium Chloride (Ns) 1,000 mls @ 0 mls/hr IV EDNOW ONE; Wide Open PRN Reason: Protocol Stop: 10/30/17 15:44 Last Admin: 10/30/17 15:51 Dose: 1,000 mls Departure - Departure Disposition: [facility] IP Clinical Impression: Dehydration Condition: Fair Instructions: Dehydration (ED) Additional Instructions: Continue to drink fluids as we discussed. Discontinue lithium for now. Take antibiotics as discussed. Referrals: Patient,NotPresent [Unknown] - As per Instructions Prescriptions: Cephalexin [Keflex] 500 mg PO TID #21 cap
[2017-10-30 19:01] VITALS: BP 99/68
== END 2017-10-30 20:42 ==
LOC: EDUNIT#
DX: E86.0 Dehydration (principal)
CPT/HCPCS: 96365; 99285; J0696